=== PATIENT | male | born 1970 | race Hispanic/Latino ===

== ENCOUNTER 2020-05-22 14:51 | Emergency (ER) | payer OTHER ==
[~2020-05-22] VITALS: Ht 177.8 cm; Wt 107.5 kg
--- NOTE | 2020-05-22 15:25 | Emergency Department Note ---
History of Present Illnes History of Present Illness Chief Complaint: Hand Pain History of Present Illness This is a 50 year old male, with history of hypertension, who presents with concerns that he may have "Methanol Poisoning," based on an Internet search. Patient states that he was cleaning his lawn more carburetor, with carburetor mold cleaner, and was spraying this mold cleaner onto the carburetor while holding it and his hands. He states that he has never done this before. Patient states that he began to feel some tingling of his hands, felt lightheaded, and slightly nauseated, approximately 1 hour after using the chemical. This is approximately 4 hours ago. He has had no vomiting, no visual changes, no altered mental status, note ataxia or difficulty with coordination, and no abdominal pain. He did NOT ingest the carburetor mold cleaner, he simply got it on his hands. 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 Onset (how long ago): hour(s) (4) Location: hands Quality: "tingly" Radiation: Reports non-radiation Severity: mild Onset quality: sudden Duration (how long): hour(s) (4) Timing of current episode: constant Progression: unchanged Chronicity: new Context: Denies recent illness, Denies trauma/injury, Denies new medications Relieving factors: none Exacerbating factors: none Associated symptoms: Reports denies other symptoms; Denies chest pain, Denies diaphoresis, Denies fever/chills, Denies headaches, Denies nausea/vomiting, Denies shortness of breath Treatments prior to arrival: none Past Medical/Family History Physician Review I have reviewed the patient's past medical and family history. Any updates have been documented here. Past Medical History Recent Fever: No Clinical Suspicion of Infectio: No New/Unexplained Change in Ment: No Past Medical History: Hypertension Past Surgical History: None Social History Smoking Cessation: Never Smoker Alcohol Use: None Any Illegal Drug Use: No TB Exposure/Symptoms: No Physically hurt or threatened: No Family History Family history of heart diseas: No Other Any Pre-Existing Lines (PICC,: No Is patient up to date on immun: No Review of Systems Review of Systems Constitutional: Reports no symptoms EENTM: Reports no symptoms Cardiovascular: Reports no symptoms Respiratory: Reports no symptoms Gastrointestinal: Reports no symptoms Genitourinary: Reports no symptoms Musculoskeletal: Reports no symptoms Integumentary: Reports other (skin of both hands appears normal); Denies change in color, Denies change in hair/nails, Denies lesions, Denies rash, Denies ecchymosis Neurological: Reports tingling (dorsal aspect of both hands;) Psychological: Reports no symptoms Endocrine: Reports no symptoms Hematological/Lymphatic: Reports no symptoms Review of other systems: All other systems negative Physical Exam Related Data Vital signs reviewed: Yes Physical Exam CONSTITUTIONAL Constitutional: Present well-developed, Present well-nourished HENT HENT: Present normocephalic, Present atraumatic, Present oropharynx clear/moist, Present nose normal HENT L/R: Present left ext ear normal, Present right ext ear normal EYES Eyes: Reports PERRL, Reports conjunctivae normal NECK Neck: Present ROM normal PULMONARY Pulmonary: Present effort normal, Present breath sounds normal CARDIOVASCULAR Cardiovascular: Present regular rhythm, Present heart sounds normal, Present capillary refill normal, Present normal rate GASTROINTESTINAL Abdominal: Present soft, Present nontender, Present bowel sounds normal GENITOURINARY SKIN Skin: Present warm, Present dry; Absent erythema, Absent rash, Absent bruising, Absent lesion MUSCULOSKELETAL Musculoskeletal: Present ROM normal; Absent edema, Absent tenderness, Absent swelling NEUROLOGICAL Neurological: Present alert, Present oriented x 3, Present no gross motor or sensory deficits; Absent abnormal gait (back to [place]) PSYCHOLOGICAL Psychological: Present mood/affect normal, Present judgement normal Results Laboratory Laboratory [facility] - nl except for gluc = 147, K = 3.4; AG = 10; NO METABOLIC ACIDOSIS; Lab results reviewed: Yes Assessment & Plan Medical Decision Making MDM You may use 1% Hydrocortisone Cream on hands twice daily, or you may use Odette briderm, Eucerin, or Aveeno Lotion. Follow-up with your symptoms, if your symptoms persist. Recommend that you wear gloves, anytime that you are using chemicals. Assessment & Plan Final Impression: (1) Chemical exposure (2) Hypertension Depart Disposition: HOME, SELF-CARE JEFFERSON REIS MD May 22, 2020 15:25
--- OUTSIDE RECORDS SUMMARY | 2020-05-22 15:56 | XMS REPORT | Clinical Summary ---
Author Author [facility] Address Unknown Phone Unavailable Care Team Providers Care Code Inspector Name Role Phone Colin Caceres MD PCP Allergies No Known Allergies Medications End Date Status Medication Sig Dispensed Refills Start Date Active esomeprazole (NexIUM) 40 TAKE 1 90 capsule 0 0 8/20/201 MG capsule CAPSULE BY 7 MOUTH DAILY Active metoprolol succinate XL Take 50 mg by 0 (TOPROL-XL) 50 mg 24 hr mouth 2 (two) 8 tablet times a day. Active olmesartan (BENICAR) 20 Take 20 mg by 1 06/12/ 201 MG tablet mouth every 8 morning. Active rosuvastatin (CRESTOR) 10 Take 10 mg by 1 08/2 0/201 MG tablet mouth daily. 8 Active Problems Not on file Encounters Care Team Description Date Type Specialty 04/28/2020 Travel after 05/22/2019 Immunizations Name Administration Dates Next Due FLUZONE QUAD PF 06/24/2018 Family History Medical History Relation Name Comments Ulcers Mother Relation Name Status Comments Brother Father Alive Mother Social History Date Tobacco Use Types Packs/Day Years Used Never Smoker Smokeless Tobacco: Never Used Drinks/Week oz/Week Comments Alcohol Use No Sex Assigned at Date Recorded Not on file Industry Job Start Date Occupation Not on file Not on file Not on file Travel End Travel History Travel Start No recent travel history available. Date Recorded COVID-19 Exposure Response 04/28/2020 10:35 AM CDT In the last month, have you been in contact with No / Unsure someone who was confirmed or suspected to have Coronavirus / COVID-19? Last Filed Vital Signs Not on file Plan of Treatment Health Maintenance Due Date Last Done Comments INFLUENZA VACCINE 06/07/2020 06/24/2018 Results Not on fileafter 05/22/2019 Insurance Type Payer Benefit Subscriber ID Effective Phone Address Plan / Dates Group HMO CIGNA CIGNA OPEN xxxxxxxxxxx 2003-P ACCESS/NET resent WORK [id number] Advance Directives For more information, please contact: [phone] Patient Trucker Hand Explanation Type Date Recorded Advance Directives, Living Will and Medical Power of [employer]ical [employer] Internship
--- OUTSIDE RECORDS SUMMARY | 2020-05-22 15:56 | XMS REPORT | Continuity of Care Document ---
Author Author [facility] Organization [facility] Address [address] [place] [address] Phone Unavailable Care Team Providers Care Head Of Research & Insights Name Role Phone Colin Caceres MD PCP RYAN MARTIN Unavailable Payers Payer Name Policy Type Policy Number Effective Date Expiration Date S ezekiel CIGNACIGNA OPEN ACCESS/NETWORKxxxxxxxxxxx2003-PresentHMO xxxxxxxxxxx 2003 00:00:00 Stephen Sosa Problems This patient has no known problems. Allergies, Adverse Reactions, Alerts This patient has no known allergies or adverse reactions. Family History Family Member Diagnosis Comments Start Date Stop Date Source Natural mother Ulcers [facility] Social History Social Habit Start Date Stop Date Quantity Comments Source Sex Assigned At [facility] ter[facility] Sheila Exposure to SARS-CoV-2 (event) Not sure Stephen Sosa Alcohol intake 2018-07-15 00:00:00 2018-07-15 00:00:00 Current non-drinker of alcohol (finding) Stephen Sosa Smoking Status Start Date Stop Date Source Never smoker [place] Elsa jones Medications Ordered Medication Name Filled Medication Name Start Date Stop Da te Current Medication? Ordering Clinician Indication Dosage Frequency Signature (SIG) Comments Components Source metoprolol succinate XL (TOPROL-XL) 50 mg 24 hr tablet 2018-06-12 00:00:00 Yes 50mg Q.5D Take 50 mg by mouth 2 (two) times a day. Stephen Sosa olmesartan (BENICAR) 20 MG tablet 2018-06-12 00:00:00 Yes 20mg QD Take 20 mg by mouth every morning. [facility] rosu[facility] (CRESTOR) 10 MG tablet 2018-05-26 00:00:00 Yes 10mg QD Take 10 mg by mouth daily. Stephen Sosa esomeprazole (NexIUM) 40 MG capsule 2017-05-26 00:00:00 Yes TAKE 1 CAPSULE BY MOUTH DAILY Stephen Sosa Immunizations Ordered Immunization Name Filled Immunization Name Date Status Comments Source FLUZONE QUAD PF 2018-06-24 00:00:00 Completed Stephen Sosa Procedures This patient has no known procedures. Plan of Care Planned Activity Planned Date Details Comments Source Future Scheduled Test 2020-06-07 00:00:00 INFLUENZA VACCINE [code = INFLUENZA VACCINE] Stephen Sosa Encounters Start Date/Time End Date/Time Encounter Type Admission Type [facility] Care Department Encounter ID Source 2020-04-28 00:00:00 2020-04-28 00:00:00 Outpatient [facility] MART[facility] [id number] Stephen Sosa Results This patient has no known results.
== END 2020-05-22 16:33 | disposition home or self-care (01) ==
LOC: FSED 15:40
DX: Z77.028 Contact with and (suspected) exposure to other hazardous aromatic compounds (principal); Y92.007 Garden or yard of unspecified non-institutional (private) residence as the place of occurrence of the external cause; I10 Essential (primary) hypertension
CPT/HCPCS: 99282